=== PATIENT | male | born 1970 | race Caucasian/White ===

== ENCOUNTER 2020-12-04 10:02 | Emergency (ER) | payer OTHER, SELFPAY ==
[2020-12-04 10:08] VITALS: BP 192/108; PULSE 86; RESP 12; TEMP 36.7; O2SAT 100; BMI 34.2
--- NOTE | 2020-12-04 10:13 | DI.RAD.S_ITS ---
PROCEDURE: XR ELBOW RT MIN 3V INDICATIONS: swollen, painful TECHNIQUE: 3 views of the elbow were acquired. COMPARISON: None. FINDINGS: Bones: No definite acute fractures or dislocations, however there is mild irregularity at the radial head in a pattern suggestive of old radial head fracture. Please correlate clinically-this could also represent an unusual manifestation of acute trauma.. No suspicious bony lesions. Soft tissues: Small to moderate elbow joint effusion. No suspicious soft tissue calcifications. IMPRESSION: Radial head fracture is present, small joint effusion is seen, suspect unusual manifestation of acute trauma. Alternatively, old trauma might explain the irregularity present which is extending to the articular surface superiorly. Dictated by: Carter Solano M.D. on 12/04/2020 at 10:48 Approved by: Carter Solano M.D. on 12/04/2020 at 10:50
--- NOTE | 2020-12-04 10:49 | ED_ITS ---
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 He noticed it a little bit 4 days ago at however progressively got more swollen last night it was so swollen that the she could not touch it without causing pain. He has had some mild erythema which has waxed and waned and currently looks better than it has previously. He has not taken any pain medication. He has no numbness tingling or weakness in his hand. Denies any injury he does pain with both hands but is in more of a managing position. He is able to flex and extend his elbow however extending it completely does cause some pain along with supination and pronation. he denies any fever or chills Related Data Previous Rx's Medication Instructions Recorded doxycycline hyclate 100 mg capsule 100 mg PO BID #14 cap 12/04/20 doxycycline hyclate 100 mg capsule 100 mg PO BID #20 cap 12/04/20 Allergies Allergy/AdvReac Type Severity Reaction Status Date / Time latex Allergy Verified 12/04/20 10:10 Penicillins Allergy Verified 12/04/20 10:10 Sulfa (Sulfonamide Allergy Verified 12/04/20 10:10 Antibiotics) Review of Systems Review of Systems Narrative: GENERAL: Denies chills, fatigue, malaise, fever, sweats, travel HEENT: Denies sinus pain, ear pain, sore throat, difficulty swallowing, neck pain RESPIRATORY: Denies dyspnea, cough, wheezing, hemoptysis, sputum. CARDIOVASCULAR: Denies chest pain, palpitations, orthopnea, edema GASTROINTESTINAL: Denies nausea, vomiting, abdominal pain, diarrhea, constipation, melena. : Denies dysuria, frequency, incontinence, hematuria, urinary retention, flank pain. MUSCULOSKELETAL: swelling of right elbow, see HPI SKIN: dryness on elbows mild erythema NEUROLOGIC: Denies weakness, dizziness, headache, numbness, change in speech, confusion PSYCHIATRIC: No concerning psychosocial issues. 12 point review of systems is negative except for those stated above and HPI Patient History Social History Smoking Status: Never smoker Smoking Status: Never smoker alcohol intake frequency: a few times a week Substance Use Type: does not use Exam Initial Vital Signs Initial Vital Signs: Vital Signs Temperature 98.0 F 12/04/20 10:08 Pulse Rate 86 12/04/20 10:08 Respiratory Rate 12 12/04/20 10:08 Blood Pressure 192/108 H 12/04/20 10:08 Pulse Oximetry 100 12/04/20 10:08 GENERAL: Alert pleasant 50-year-old male HEENT: Head atraumatic,EOMI, pupils reactive, face symmetric, [moist] mucous membranes CARDIOVASCULAR: Regular rate and rhythm without murmurs, rubs or gallops. RESPIRATORY: Breath sounds equal bilaterally, no wheezes rales or rhonchi. EXTREMITIES: Normal range of motion, no clubbing or edema. Neurovascularly intact right upper extremity of forearm with mild erythema. He is currently has dryness of the right elbow but no laceration. He is able to flex and extend however extension is slightly limited a good pronation and supination. Tender to touch. NEUROLOGICAL: Alert and oriented x4. SKIN: Mild erythema described above Course Orders Ordered: ED Orders 12/04/20 10:13 XR elbow RT min 3V Stat 12/04/20 10:36 C-Reactive Protein Quant Stat Complete Blood Count AUTO DIFF Stat Comprehensive Metabolic Panel Stat Erythrocyte Sedimentation Rate Stat Procalcitonin Stat 12/04/20 11:05 Blood Culture Stat Discontinued Medications Ketorolac Tromethamine (Ketorolac 30 Mg/Ml Vial) 30 mg IV NOW ONE Stop: 12/04/20 10:49 Last Admin: 12/04/20 11:09 Dose: 30 mg Documented by: BURTON Vital Signs Vital signs: Vital Signs - 8 hr 12/04/20 12:07 Pulse Rate 98 H Respiratory Rate 12 Blood Pressure 186/72 H Pulse Oximetry 99 MDM - Extremity (Nontraumatic) Lab Data Result diagrams: 12/04/20 10:36 12/04/20 10:36 Labs: Lab Results 12/04/20 12/04/20 12/04/20 Range/Units 10:36 10:36 10:36 WBC 14.3 H (4.5-11.0) X10^3/uL RBC 6.08 H (4.5-5.9) X10^6/uL Hgb 17.6 H (13.5-17.5) g/dL Hct 53.3 H (41-53) % MCV 87.6 (80-100) fL MCH 28.9 (26-34) PG MCHC 33.0 (30-36) % RDW 13.8 (11.6-14.8) % Plt Count 246 (150-400) X10^3/uL Neut % (Auto) 75.8 H (50-75) % Lymph % (Auto) 12.9 L (25-40) % [place] % (Auto) 10.2 (3-14) % Eos % (Auto) 0.7 L (2-4) % Baso % (Auto) 0.4 (0-2) % Neut # (Auto) 89173 H (7482-7979) /uL Lymph # (Auto) 1800 (9130-0574) /uL [place] # (Auto) 1500 H (0-900) /uL Eos # (Auto) 100 (0-450) /uL Baso # (Auto) 100 (0-100) /uL ESR 5 (0-15) MM/HR Sodium 141 (137-145) mmol/L Potassium 4.2 (3.4-5.1) mmol/L Chloride 110 H (98-107) mmol/L Carbon Dioxide 22 (22-32) mmol/L BUN 17 (9-20) mg/dL Creatinine 0.90 (0.66-1.25) mg/dL Estimated GFR > 60.0 (>60) mL/min BUN/Creatinine Ratio 18.9 (6-22) Glucose 124 H (70-100) mg/dL Calcium 9.5 (8.4-10.2) mg/dL Total Bilirubin 0.8 (0.2-1.3) mg/dL AST 38 (17-59) IU/L ALT 48 (<50) IU/L Alkaline Phosphatase 84 (38-126) U/L C-Reactive Protein 1.7 H (<1.0) mg/dL Total Protein 8.0 (6.3-8.2) g/dL Albumin 4.5 (3.5-5.0) g/dL Globulin 3.5 (1.7-4.1) g/dL Albumin/Globulin Ratio 1.3 (1.0-2.8) Procalcitonin 0.03 (<0.5) ng/mL Imaging Data Extremity x-ray #1: Radiologist's Impression: PROCEDURE: XR ELBOW RT MIN 3V INDICATIONS: swollen, painful TECHNIQUE: 3 views of the elbow were acquired. COMPARISON: None. FINDINGS: Bones: No definite acute fractures or dislocations, however there is mild irregularity at the radial head in a pattern suggestive of old radial head fracture. Please correlate clinically-this could also represent an unusual manifestation of acute trauma.. No suspicious bony lesions. Soft tissues: Small to moderate elbow joint effusion. No suspicious soft tissue calcifications. IMPRESSION: Radial head fracture is present, small joint effusion is seen, suspect unusual manifestation of acute trauma. Alternatively, old trauma might explain the irregularity present which is extending to the articular surface superiorly. Dictated by: Carter Solano M.D. on 12/04/2020 at 10:48 MDM Narrative Medical decision making narrative: The patient is noted to have quite a bit of swelling in arm and elbow. However he is afebrile knee is able to flex and extend his arm little concern for septic joint at this time. He does have mild leukocytosis but is also likely hemoconcentrated. He is able to tolerate p.o. fluids and is not need IV fluids at this time. He has allergic reactions to penicillin and sulfa. 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 He has actually had infection in that right elbow in the past and had a PICC line. I will start him on doxycycline. I have given him strict instructions to elevate ice and use NSAIDs. If his symptoms and swelling is worsening he needs to return to the emergency department as soon as possible. Discharge Plan Departure Patient Disposition: Home Clinical Impression: Cellulitis of forearm, right Bursitis Qualifiers: Bursitis location: elbow Elbow bursitis location: olecranon bursitis Laterality: right Qualified Code(s): M70.21 - Olecranon bursitis, right elbow Instructions: DI for Cellulitis -- Adult, Bursitis Activity Restrictions/Additional Instructions: *You have been diagnosed with right elbow bursitis and cellulitis *What to do: at this time keep arm elevated and a comfortable position. Ice 20-30 minutes at a time. *Continue to take medications as directed Doxycycline 100 mg twice a day for 10 days ibuprofen 800 mg every 8 hours with food for about 7-10 days *Follow up with your primary care provider in 2-3 days *Return to ER if you should have increasing swelling, numbness or tingling in the fingertips, worsening redness, fever more than 100.4, intense pain, inability to move are[or] any new, worsening or concerning symptoms Prescriptions: New doxycycline hyclate 100 mg capsule 100 mg PO BID Qty: 14 RF: 0 doxycycline hyclate 100 mg capsule 100 mg PO BID Qty: 20 RF: 0
--- NOTE | 2020-12-04 10:49 | PC.NURSE ---
significant swelling noted from elbow down to mid forearm. Patient denies any specific injury . Skin over elbow appears dry and cracked. Warmth and some redness noted over elbow and down to mid arm. Denies fevers or chills. Tender to palpation
[2020-12-04 10:57] LABS: Add Manual Diff / Slide Review NO; Basophils Absolute Auto 100 /uL (0-100); Basophils Percent Auto 0.4 % (0-2); Eosinophils Absolute Auto 100 /uL (0-450); Eosinophils Percent Auto 0.7 % (2-4); Hematocrit 53.3 % (41-53); Hemoglobin 17.6 g/dL (13.5-17.5); Lymphocytes Absolute Auto 1800 /uL (1100-4500); Lymphocytes Percent Auto 12.9 % (25-40); Mean Corpuscular Hemoglobin 28.9 PG (26-34); Mean Corpuscular Volume 87.6 fL (80-100); Monocytes Absolute Auto 1500 /uL (0-900); Monocytes Percent Auto 10.2 % (3-14); Neutrophils Absolute Auto 10800 /uL (1500-7000); Neutrophils Percent Auto 75.8 % (50-75); Platelet Count 246 X10^3/uL (150-400); Red Blood Cell Count 6.08 X10^6/uL (4.5-5.9); Red Cell Distribution Width 13.8 % (11.6-14.8); White Blood Cell Count 14.3 X10^3/uL (4.5-11.0)
[2020-12-04 11:06] LABS: Alanine Aminotransferase 48 IU/L (<50); Albumin 4.5 g/dL (3.5-5.0); Albumin Globulin Ratio 1.3 (1.0-2.8); Alkaline Phosphatase 84 U/L (38-126); Aspartate Aminotransferase 38 IU/L (17-59); BUN Creatinine Ratio 18.9 (6-22); Bilirubin Total 0.8 mg/dL (0.2-1.3); Blood Urea Nitrogen 17 mg/dL (9-20); C-Reactive Protein Quant 1.7 mg/dL (<1.0); Calcium 9.5 mg/dL (8.4-10.2); Carbon Dioxide 22 mmol/L (22-32); Chloride 110 mmol/L (98-107); Estimated Glomerular Filt Rate > 60.0 mL/min (>60); Globulin 3.5 g/dL (1.7-4.1); Glucose 124 mg/dL (70-100); HEMOLYSIS 23 (0-50); Potassium 4.2 mmol/L (3.4-5.1); Sodium 141 mmol/L (137-145)
[2020-12-04] MEDS: KETOROLAC 30 MG/ML VIAL IV (11:09)
[2020-12-04 11:20] LABS: Procalcitonin 0.03 ng/mL (<0.5)
[2020-12-04 11:31] LABS: Erythrocyte Sedimentation Rate 5 MM/HR (0-15)
[2020-12-04 12:07] VITALS: BP 186/72; PULSE 98; RESP 12; O2SAT 99
[2020-12-05 07:48] LABS: Acinetobacter baumannii Not Detected (Not Detect); Candida albicans Not Detected (Not Detect); Candida glabrata Not Detected (Not Detect); Candida krusei Not Detected (Not Detect); Candida parapsilosis Not Detected (Not Detect); E. coli Not Detected (Not Detect); Enterobacter cloacae complex Not Detected (Not Detect); Enterobacteriaceae species Not Detected (Not Detect); Enterococcus species Not Detected (Not Detect); Haemophilus influenzae Not Detected (Not Detect); Listeria monocytogenes Not Detected (Not Detect); Methicillin-resistant gene Not Detected (Not Detect); Neisseria meningitidis Not Detected (Not Detect); Proteus species Not Detected (Not Detect); Pseudomonas aeruginosa Not Detected (Not Detect); Serratia marcescens Not Detected (Not Detect); Staphylococcus species Detected (Not Detect); Streptococcus agalactiae (Gr B Not Detected (Not Detect); Streptococcus pneumonia Not Detected (Not Detect); Streptococcus pyogenes (Gr A) Not Detected (Not Detect); Streptococcus species Not Detected (Not Detect)
[2020-12-05 07:49] LABS: Candida tropicalis Not Detected (Not Detect)
== END 2020-12-04 12:09 | disposition home or self-care (01) ==
PROVIDERS: Emergency Provider Emergency Medicine
DX: L03.113 Cellulitis of right upper limb (principal); M70.21 Olecranon bursitis, right elbow
CPT/HCPCS: 36415; 73080; 80053; 84145; 85025; 85651; 86140; 87040; 87150; 87186; 87205; 96374; 99284; J1885